=== PATIENT | female | born 1965 ===

== ENCOUNTER 2018-04-07 08:40 | Emergency (ER) | payer SELFPAY ==
[2018-04-07 08:41] VITALS: BMI 23.0
[2018-04-07 08:43] VITALS: TEMP 97.8; O2SAT 100
[2018-04-07 09:14] VITALS: RESP 18
--- NOTE | 2018-04-07 10:33 | ED PDOC ---
HPI: General Adult Time Seen by Provider: 04/07/18 09:16 Chief Complaint (Nursing): Shortness Of Breath History Per: Patient History/Exam Limitations: no limitations Additional History Per: Patient Additional Complaint(s): No PMHx presenting with L sided rib pain. States she has had pain for 4 days in the L lower ribs. Denies injury. No fevers, chills. No nausea, vomiting. No abdominal pain. Past Medical History Reviewed: Historical Data, Nursing Documentation, Vital Signs Vital Signs: Last Vital Signs Temp 97.8 F 04/07/18 08:41 Pulse 61 04/07/18 08:41 Resp 18 04/07/18 09:12 BP 124/62 04/07/18 08:41 Pulse Ox 100 04/07/18 09:12 - Medical History PMH: Hypothyroidism (currently does not take any medication) - Family History Family History: States: Unknown Family Hx - Home Medications Home Medications: Ambulatory Orders Medication Instructions Recorded Methimazole [Tapazole] 1 tab PO DAILY 05/23/15 Cyclobenzaprine [Cyclobenzaprine 10 mg PO BID #15 tab 04/07/18 HCl] Ibuprofen [Motrin Tab] 600 mg PO Q6 #30 tab 04/07/18 - Allergies Allergies/Adverse Reactions: Allergies Allergy/AdvReac Type Severity Reaction Status Date / Time No Known Allergies Allergy Unverified 04/07/18 09:09 Review of Systems ROS Statement: Except As Marked, All Systems Reviewed And Found Negative Musculoskeletal: Positive for: Other (Rib Pain) Physical Exam - Reviewed Nursing Documentation Reviewed: Yes Vital Signs Reviewed: Yes - Physical Exam Appears: Positive for: Well, Non-toxic, No Acute Distress Head Exam: Positive for: ATRAUMATIC, NORMAL INSPECTION, NORMOCEPHALIC Skin: Positive for: Normal Color, Warm, DRY Eye Exam: Positive for: EOMI, Normal appearance, PERRL ENT: Positive for: Normal ENT Inspection Neck: Positive for: Normal, Painless ROM Cardiovascular/Chest: Positive for: Regular Rate, Rhythm, Other (L lower rib tenderness, no crepitus/stepoff) Respiratory: Positive for: CNT, Normal Breath Sounds Gastrointestinal/Abdominal: Positive for: Normal Exam, Soft Back: Positive for: Normal Inspection Extremity: Positive for: Normal ROM Neurologic/Psych: Positive for: Alert, Oriented - ECG ECG Rhythm: Positive for: Normal QRS, Normal ST Segment, Sinus Bradycardia Rate: 57 O2 Sat by Pulse Oximetry: 100 Pulse Ox Interpretation: Normal Medical Decision Making Medical Decision MakinAM Patient presenting with atraumatic rib pain --Very well appearing, normal vitals, non-ischemic EKG --Possibly costochondritis, musculoskeletal in nature, less likely fracture --Not concerned for PE given exam findings and history --Will treat with NSAID, muscle relaxant 1200PM --Xray and EKG negative --Patient feeling much better --Advised against heavy lifting/strenuous activity --Will d/c home with NSAID and muscle relaxant --Very well appearing upon discharge Disposition - Clinical Impression Clinical Impression: Rib pain - Disposition Referrals: Judy Ness [Outside] Disposition: Routine/Home Disposition Time: 12:00 Condition: STABLE Prescriptions: Cyclobenzaprine [Cyclobenzaprine HCl] 10 mg PO BID #15 tab Ibuprofen [Motrin Tab] 600 mg PO Q6 #30 tab Instructions: Chest Pain That Is Not Caused by the Heart (DC) Forms: [employer] (Lithuanian) Print Language: LATVIAN
--- NOTE | 2018-04-07 11:58 | RAD ---
Date of service: 04/07/2018 PROCEDURE: Radiographs of the Chest and Left Ribs. HISTORY: L sided rib pain COMPARISON: None available. TECHNIQUE: Frontal radiograph of the chest and multiple oblique radiographs of the left ribs were obtained. FINDINGS: LEFT RIBS: No fracture or focal lesion visualized. LUNGS: Clear. PLEURA: No pneumothorax or pleural fluid. CARDIOVASCULAR: Normal cardiac size. No pulmonary vascular congestion. No aortic atherosclerotic calcification present OTHER FINDINGS: None. IMPRESSION: Unremarkable radiographs of the chest and left ribs. No visible/displaced left rib fracture.
[2018-04-07 12:52] VITALS: BP 122/60; PULSE 65
--- NOTE | 2018-04-08 02:59 | CARD ---
APPROVED REPORT Date of service: 04/07/2018 EKG Measurement Heart [id number] TN [id number] <Conclusion> Sinus bradycardia Otherwise normal ECG
== END 2018-04-07 12:30 | disposition home or self-care (01) ==
LOC: H.ER 08:40
DX: R07.81 Pleurodynia (principal); E03.9 Hypothyroidism, unspecified